=== PATIENT | female | born 1950 | race Caucasian/White ===

== ENCOUNTER 2020-07-02 12:00 | Outpatient (CLI) | payer MEDICARE, SELFPAY ==
--- NOTE | ~2020-07-02 | XR_ITS ---
XR_CERV2-3V_CR DATE: 07/02/2020 12:34 INDICATION: Neck pain for 8 months. History of rheumatoid arthritis. TECHNIQUE: AP, open-mouth, lateral views COMPARISON: None FINDINGS: Reversal/straightening of cervical spine. Approximately 1.5 mm anterolisthesis at C2-3 Approximately 3 mm anterolisthesis at C3-4 Approximately 2.5 mm anterolisthesis at C4-5 Moderately severe degenerative disc disease at C3-4 Mild degenerative disc disease at C4-5 There is uncovertebral joint spurring particularly at C5-6 and C6-7. There is degenerative change at the apophyseal joints throughout the cervical spine. Severe degenerative disc disease at C5-6 and C6-7. No fracture is evident. No prevertebral soft tissue swelling. There is no evidence of bone destruction. Bilateral apical capping. IMPRESSION: Reversal/straightening Anterolisthesis at C2-3, C3-4 and C4-5 Multilevel degenerative disc disease Uncovertebral joint spurring at C5-6 and C6-7 in particular Degenerative change at the apophyseal joints Reviewed, dictated and finalized at [facility]. Reviewed, dictated and finalized at location B.
== END 2020-07-02 12:01 | disposition home or self-care (01) ==
LOC: ANHIMG 12:12
PROVIDERS: PCP Family Medicine
DX: M06.09 Rheumatoid arthritis without rheumatoid factor, multiple sites (principal); M53.82 Other specified dorsopathies, cervical region; M43.12 Spondylolisthesis, cervical region; M50.30 Other cervical disc degeneration, unspecified cervical region; M46.02 Spinal enthesopathy, cervical region
CPT/HCPCS: 72040

== ENCOUNTER 2020-09-07 12:52 | Emergency (ER) | payer MEDICARE, SELFPAY ==
--- NOTE | ~2020-09-07 | CT_ITS ---
EXAMINATION: CT brain wo con DATE: 09/07/2020 14:50 INDICATION: Fall. TECHNIQUE: Computed tomography (CT) of the head was performed without intravenous contrast. The mA wa s adjusted according to patient size. Iterative reconstruction technique was employed. Exam dose: 60 5.33 mGy-cm total exam DLP. COMPARISON: None FINDINGS: Prominent bilateral vertebral artery and carotid siphon internal carotid artery calcificati ons. There is nonspecific diminished attenuation of the cerebral white matter, likely due to chronic small vessel ischemic changes. No intracranial mass lesion or hemorrhage, midline shift or mass effect or cerebrovascular accident. No subdural or epidural hematoma. No fracture or bone destruction of the cranial vault. Included mastoid air cells and paranasal sinuses are unremarkable. IMPRESSION: Cerebral atherosclerosis and chronic small vessel ischemic changes of the cerebral white matter No skull fracture or acute intracranial finding Reviewed, dictated and finalized at [facility]. Reviewed, dictated and finalized at location A.
--- NOTE | ~2020-09-07 | XR_ITS ---
XR shoulder RT min 2V 09/07/2020 13:59 Indication: Right shoulder pain after fall Procedure: 2 views right shoulder Comparison: No prior studies for comparison. Findings: There is a comminuted right humeral neck/head fracture with anterior dislocation. Acromiocl avicular joint intact. Visualized lung parenchyma is unremarkable. Impression: 1: Comminuted displaced right humeral neck/head fracture with anterior dislocation. Reviewed, dictated and finalized at location A. Impression: 1: Comminuted displaced right humeral neck/head fracture with anterior dislocat ion.
--- NOTE | ~2020-09-07 | CT_ITS ---
EXAMINATION: CT facial & cervical spine wo DATE: 09/07/2020 14:50 INDICATION: Fall. Facial and neck injury TECHNIQUE: Computed tomography (CT) of the facial bones and maxillofacial region than cervical spine was performed without intravenous contrast. Automated exposure control and iterative reconstruction t echnique were employed. Exam dose: 216.46 mGy-cm total exam DLP. COMPARISON: None. FINDINGS: The frontozygomatic sutures, orbital rims and real, zygomatic arches, maxillary bones, tem poral mandibular joints and mandible are intact, as well as nasal bones, without apparent recent frac ture. Incidental finding of left nasal antral window. No significant abnormality of the paranasal sinuses o r mastoid air cells. There is extensive lytic change at the body of C2 and the base of the odontoid process is prominent s clerosis and cystic change at the articulation of the lateral elements of C1 and C2 on the left and m ild leftward subluxation of C2 with respect to C1. There are some areas of absent cortex in the mid a nd C2 region. Pathologic fracture is not excluded. Consider neck collar and urgent neurosurgical cons ultation. IMPRESSION: Extensive lytic changes of C2 including the body and the base of the odontoid process, w ith interruption of cortex; pathologic C2 fracture is not excluded. The differential diagnosis for the lytic changes at C2 include extensive bone destruction from pannus from rheumatoid arthritis or other spondyloarthropathy, versus metastasis, less likely plasmacytoma/ multiple myeloma, lymphoma. Consider immobilization and urgent neurosurgical consultation. No facial fracture Reviewed, dictated and finalized at [facility]. Reviewed, dictated and finalized at location A. IMPRESSION: Extensive lytic changes of C2 including the body and the base of t he odontoid process, with interruption of cortex; pathologic C2 fracture is not excluded. The differential diagnosis for the lytic changes at C2 include extensive bone d estruction from pannus from rheumatoid arthritis or other spondyloarthropathy, versus metastasis, less likely plasmacytoma/multiple myeloma, lymphoma. Consider immobilization and urgent neurosurgical consultation. No facial fracture
[2020-09-07 13:11] VITALS: BP 130/70; PULSE 78; RESP 22; TEMP 36.6; O2SAT 98
--- NOTE | 2020-09-07 13:11 | PC.NURSE ---
patient resting on stretcher. in room. on BP and O2 monitors. alert. oriented. denies needs right now. right arm/shoulder elevated on 1 pillow per her request. side rails up x 2. assessments documented
[2020-09-07] MEDS: fentaNYL CITRATE INJ (*CRX) 100 MCG/2 ML VIAL 50 MCG IV PUSH ×2 (13:45→15:13)
[2020-09-07 14:10] VITALS: BP 142/92; PULSE 63; RESP 19; O2SAT 100
--- NOTE | 2020-09-07 14:27 | PC.NURSE ---
resting on stretcher. waiting for CT of facial bones. family in room.
--- NOTE | 2020-09-07 14:41 | PC.NURSE ---
patient in CT now.
[2020-09-07] MEDS: TETANUS,DIPHTHERIA,AC PERTUSSIS ADULT (0.5 ML) BOOSTRIX IM (15:05)
[2020-09-07] MEDS: ONDANSETRON INJ 4 MG/2 ML VIAL IV PUSH (15:12)
--- NOTE | 2020-09-07 15:41 | ED.FALL ---
HPI - Fall General Chief Complaint: Fall Stated Complaint: FALL/SHOULDER/NOSE PAIN Time Seen by Provider: 09/07/20 12:54 Source: patient and family History of Present Illness HPI Narrative: 69 years old white female presented to the ED because of a fall, patient pain, right shoulder pain. Patient denies loss of consciousness, not on any blood thinner, long history of rheumatoid arthritis with chronic neck pain, denies any new pain in her neck today compared to yesterday. Patient denies other injuries. Patient denies any fever, chills, nausea, vomiting, diarrhea, constipation, chest pain, shortness of breath, headache Related Data Home Medications Medication Instructions Recorded Confirmed Estroven 09/07/20 bimatoprost [Lumigan] drp 09/07/20 bupropion HCl [Wellbutrin XL] mg PO HS 09/07/20 gabapentin PO TID 09/07/20 indomethacin HS 09/07/20 infliximab [Remicade] IV MONTHLY 09/07/20 prednisone DAILY 09/07/20 Allergies Allergy/AdvReac Type Severity Reaction Status Date / Time Penicillins Allergy Unknown Verified 09/07/17 07:57 Review of Systems Review of Systems: Narrative: CONSTITUTIONAL: Denies fever, chills, or sweats. EYES: Denies visual changes, redness, or discharge. ENT: Denies rhinorrhea, congestion, sore throat, or otalgia. CARDIOVASCULAR: Denies chest pain, palpitations, or edema. RESPIRATORY: Denies cough or dyspnea. GASTROINTESTINAL: Denies abdominal pain, nausea, vomiting, or diarrhea. GENITOURINARY: Denies dysuria or hematuria. SKIN: Denies rash or itching. MUSCULOSKELETAL: Denies back pain, joint pain, or myalgia. NEUROLOGIC: Denies headache, numbness, or weakness. PSYCHIATRIC: Denies anxiety or depression. PMFSH Past Medical History Medical History (Updated 09/07/20 @ 16:01 by Giovanny Bulladr MD) Rheumatoid arthritis Social History Social History Smoking status: Never smoker Alcohol intake: never Exam Narrative: Exam Narrative: General appearance: Well-developed, well-nourished Skin: Normal color Head: Normocephalic, nontraumatic Eyes: Clear conjunctiva ENT: Oropharynx normal, ears normal, nose normal, contusion, abrasion nasal bridge with swelling and bruises. Neck: Supple, nontender Chest and respiratory: Airway patent, no respiratory distress, no accessory muscle use Heart: Regular rate/rhythm Abdomen: Soft, nontender, no organomegaly, quiet bowel sounds Vascular: Normal peripheral pulses, normal capillary refill. Musculoskeletal: Diffuse tenderness, deformity of the right shoulder with severe limited range of motion Neurologic: Alert and oriented ?3, FURNITURE CLE[employer]ER is normal as tested, no gross motor deficit Course Course Emergency Course: Stable [employer]/PA Physician Supervision DR VASQUES,/ED of [facility] Consultations Consultation #1: DR SCHWARTZ Date: 09/07/20 Time: 15:45 Consultation #2: DR SCHWARTZ/our orthopedic, send patient to [facility] Date: 09/07/20 Time: 15:46 Vital Signs Vital signs: Vital Signs Temperature 36.6 C 09/07/20 13:11 Pulse Rate 78 09/07/20 13:11 Respiratory Rate 22 H 09/07/20 13:11 Blood Pressure 130/70 09/07/20 13:11 Pulse Oximetry 98 09/07/20 13:11 Temperature 36.6 C 09/07/20 13:11 Pulse Rate 63 09/07/20 14:10 Respiratory Rate 19 09/07/20 14:10 Blood Pressure 142/92 H 09/07/20 14:10 Pulse Oximetry 100 09/07/20 14:10 MDM - Fall MDM Narrative Medical decision making narrative: Patient presents with right shoulder pain and facial pain after a fall. Right shoulder fracture/dislocation, facial bone fracture. CT head, facial bones and cervical spine ordered. Tetanus shot ordered, fentanyl IV ordered. Further plan to follow Differ
--- NOTE | 2020-09-07 15:48 | PC.NURSE ---
C-Collar in place at this time.
--- NOTE | 2020-09-07 15:50 | PC.NURSE ---
daughter assisted patient to clean her face with warm washcloth. skin tears cleaned and documented. dressings to both sites.
[2020-09-07 16:00] VITALS: BP 156/77; PULSE 89; RESP 14; O2SAT 100
[2020-09-07] MEDS: HYDROmorphone HCL INJ (*CRX) 1 MG/ML SYR 0.5 MG IV PUSH (16:26)
[2020-09-07 16:32] VITALS: BP 151/73; PULSE 79; RESP 18; O2SAT 100
== END 2020-09-07 16:34 | disposition short-term general hospital (02) ==
PROVIDERS: Emergency Provider Emergency Medicine; PCP Family Medicine
DX: S42.91XA Fracture of right shoulder girdle, part unspecified, initial encounter for closed fracture (principal); S12.101A Unspecified nondisplaced fracture of second cervical vertebra, initial encounter for closed fracture; M06.9 Rheumatoid arthritis, unspecified; M50.323 Other cervical disc degeneration at C6-C7 level; Z23 Encounter for immunization; W19.XXXA Unspecified fall, initial encounter
CPT/HCPCS: 70450; 70486; 72125; 73030; 90471; 90715; 96374; 96375; 96376; 99285; J1170; J2405; J3010; L0140

== ENCOUNTER 2020-09-18 19:44 | Emergency (ER) | payer MEDICARE, SELFPAY ==
--- NOTE | ~2020-09-18 | XR_ITS ---
EXAMINATION: XR chest 1V portable EXAM DATE: 09/18/2020 20:29 INDICATION: Cough, shortness of breath, COVID 19 exposure. TECHNIQUE: Portable AP frontal chest x-ray was obtained. There is no prior study for comparison. FINDINGS: Small amount of right linear opacity most consistent with subsegmental atelectasis. The tiburcio gs are otherwise clear. There are no pleural effusions. The cardiomediastinal silhouette is within normal limits. There is no pneumothorax suspected. There is right shoulder arthroplasty, likely rec ent given the emphysema adjacent to it. IMPRESSION: Small amount of right linear opacity most consistent with subsegmental atelectasis. Reviewed, dictated and finalized at location A. IMPRESSION: Small amount of right linear opacity most consistent with subsegmen lore atelectasis.
[2020-09-18 19:44] VITALS: BP 131/51; PULSE 86; RESP 19; TEMP 36.9; O2SAT 96
[2020-09-18 20:10] VITALS: PULSE 79; O2SAT 97
--- NOTE | 2020-09-18 20:10 | ECG_ITS ---
Measurements Intervals [place] Rate: 80 P: 31 OR: 156 QRS: 56 QRSD: 129 T: 31 QT: 375 QTc: 433 Interpretive Statements SINUS RHYTHM RIGHT BUNDLE BRANCH BLOCK BASELINE WANDER- V3-V6 ABNORMAL ECG Electronically Signed On 09-19-2020 7:07:27 CDT by Charbel Lezama D.O.
--- NOTE | 2020-09-18 20:13 | ED.GENADULT ---
HPI - General Adult General Chief complaint: Shortness of Breath/Dyspnea Stated complaint: sob Time Seen by Provider: 09/18/20 19:50 History of Present Illness HPI narrative: Patient is a 6-year-old female complaining of coughing nonstop could not catch her breath lasted for approximately 10 to 15 minutes and now resolved. Patient states that she wants to make sure that she does not have Covid and that is why she is here. Patient denies of shortness of breath, chest pain, nausea vomiting, diarrhea, fever or chills. She states that her son stayed with her 2 weeks ago and was diagnosed with Covid 1 week ago was hospitalized for 4 to 5 days and was just discharged a few days ago. Patient states she wants to make sure she did not get Covid from him. Patient states that she has an appointment to get a Covid test done tomorrow. Patient currently has no complaints and denies any symptoms. Related Data Home Medications Medication Instructions Recorded Confirmed Estroven 09/07/20 bimatoprost [Lumigan] drp 09/07/20 bupropion HCl [Wellbutrin XL] mg PO HS 09/07/20 gabapentin PO TID 09/07/20 indomethacin HS 09/07/20 infliximab [Remicade] IV MONTHLY 09/07/20 prednisone DAILY 09/07/20 Allergies Allergy/AdvReac Type Severity Reaction Status Date / Time Penicillins Allergy Unknown Verified 09/07/17 07:57 Review of Systems Review of Systems: All systems reviewed & are unremarkable except as noted in HPI and below Constitutional: Constitutional: Denies body ache(s), Denies chills, Denies excessive sweating, Denies fatigue, Denies fever(s), Denies headache(s), Denies lethargy, Denies malaise, Denies weakness and Denies weight loss Eyes: Eyes: Denies blurry vision, Denies change in vision and Denies loss of vision ENT: Denies dizziness, Denies ear discharge, Denies headache(s), Denies lip swelling, Denies epistaxis, Denies nasal congestion, Denies neck pain, Denies throat swelling and Denies tongue swelling Cardiovascular: Cardiovascular: Denies chest pain, Denies chest pain at rest, Denies chest pain with activity, Denies diaphoresis, Denies rapid heart rate, Denies edema, Denies irregular heart rhythm, Denies lightheadedness, Denies palpitations, Denies dyspnea and Denies dyspnea on exertion Respiratory: Respiratory: Denies chest congestion, Denies hemoptysis, Denies dyspnea and Denies dyspnea on exertion Gastrointestinal: Gastrointestinal: Denies abdominal pain, Denies melena, Denies hematochezia, Denies diarrhea, Denies nausea, Denies vomiting and Denies hematemesis Musculoskeletal: Musculoskeletal: Denies abnormal gait, Denies deformity, Denies joint swelling, Denies limited range of motion, Denies neck pain and Denies numbness Neurologic: Denies Abnormal speech present, Denies abnormal gait, Denies confusion, Denies dizziness, Denies headache(s), Denies focal weakness, Denies loss of vision, Denies numbness, Denies Other visual disturbances, Denies Sensory deficit (Neuro) and Denies weakness Psychiatric: Psychiatric: Denies confusion, Denies depression, Denies auditory hallucinations, Denies homicidal ideation and Denies suicidal ideation Endocrine: Endocrine: Denies cold intolerance, Denies excessive sweating, Denies fatigue, Denies heat intolerance and Denies palpitations Hematologic/Lymphatic: Hematologic/Lymphatic: Denies easy bleeding and Denies easy bruising Allergic/Immunologic: Allergic/Immunologic: Denies lip swelling, Denies throat swelling and Denies tongue swelling [facility] Past Medical History Medical History (Updated 09/18/20 @ 21:11 by Bay Irene MD) Rheumatoid arthritis Social History Social History Smoking status: Never smoker Alcohol intake: never Exam Const: General: cooperative, healthy appearing, comfortable, no acute distress, well developed, alert and awake; No confusion Orientation/consciousness: oriented to person, oriented to place, oriented to time, patient oriented x3 and No c
[2020-09-18 20:46] VITALS: BP 125/58; PULSE 75; RESP 22; O2SAT 96
[2020-09-18 21:01] VITALS: BP 121/55; PULSE 77; RESP 22; O2SAT 96
[2020-09-18] MEDS: HYDROcodone/acetaminophen (*CRX) 5-325 MG TABLET 1 TAB PO (21:09)
--- NOTE | 2020-09-18 21:15 | PC.NURSE ---
Pt. reports she does not have her purse with her. This RN did not notice a purse upon patient arrival. EMS never handed this RN or informed this RN of pt. having a purse. [facility] was contacted in regards to said purse and they conveyed they did not have the Pt.'s purse and it was with the Pt.'s . Pt. states that he does not have the purse and it is not in the patients car. RN rechecked pt's room and there is no purse in the patients room.
[2020-09-18 21:20] VITALS: BP 107/53; PULSE 79; RESP 22; O2SAT 97
== END 2020-09-18 21:20 | disposition home or self-care (01) ==
PROVIDERS: Emergency Provider Emergency Medicine; PCP Family Medicine
DX: R05 Cough (principal); J98.01 Acute bronchospasm; M06.9 Rheumatoid arthritis, unspecified
CPT/HCPCS: 71045; 93005; 99283; A9270

== ENCOUNTER 2020-11-23 01:32 | Outpatient (CLI) | payer MEDICARE, SELFPAY ==
[2020-11-23 19:31] LABS: SARS-CoV-2 RNA PCR Negative
== END 2020-11-23 01:33 | disposition home or self-care (01) ==
LOC: ANHCOVIDDT 01:32
PROVIDERS: PCP Family Medicine; Visit Provider Plastic Surgery
DX: Z01.812 Encounter for preprocedural laboratory examination (principal); Z11.59 Encounter for screening for other viral diseases
CPT/HCPCS: 87635; C9803; U0003

== ENCOUNTER 2020-11-27 00:31 | Day surgery (SDC) | payer MEDICARE, SELFPAY ==
[2020-11-18 14:45] VITALS: BMI 20.7
--- NOTE | 2020-11-25 13:41 | WPDANESEPPF ---
Anes - Initial Pre Proc Eval Procedure: Operation Date: 11/27/20 10:30 Proposed Procedures p Excision Basal Cell Carcinoma Left Trapezius with Frozen Section, Possible Local Tissue Transfer - Bay Godwin MD Date/Time: 11/25/20 13:41 Surgeon: Bay Godwin MD Pre Op Diagnosis: BCCA left trapezius Patient Data Age: 69 Gender: F Height: 1.68 m Weight: 58.1 kg Allergies Allergy/AdvReac Type Severity Reaction Status Date / Time Penicillins Allergy Unknown Unknown Verified 11/27/20 08:51 Home Medications Medication Instructions Recorded Confirmed Type Estroven 1 tablet PO HS 09/07/20 11/27/20 History bimatoprost [Lumigan] 1 drp OPHTHALMIC (EYE) HS 09/07/20 11/27/20 History bupropion HCl [Wellbutrin XL] 150 mg PO QAM 09/07/20 11/27/20 History gabapentin 300 mg PO TID 09/07/20 11/27/20 History indomethacin 25 mg PO HS 09/07/20 11/27/20 History infliximab [Remicade] 100 mg IV [id number] 09/07/20 11/27/20 History prednisone 5 mg PO DAILY 09/07/20 11/27/20 History levothyroxine 50 mcg PO QAM 11/18/20 11/27/20 History methotrexate sodium 10 mg PO WEEKLY 11/18/20 11/27/20 History Patient hx anesthesia problems: none Family hx anesthesia problems: none PMFSH Past Medical History Medical History (Updated 11/25/20 @ 13:42 by Dejuan Nash MD) Anxiety Depression Hypothyroidism Rheumatoid arthritis Social History Social History Smoking status: Never smoker Alcohol intake: never Living arrangements: with family Spiritual care concerns: No Anes - Eval Final PreProcedure Day of Procedure 11/25/20 13:41 Patient weight: normal Heart: regular rate and rhythm Lungs: clear to auscultation and normal air movement Airway: Mallampati scale class II Neurological: alert and oriented Last oral intake: >/= 8 hours ASA classification: II Emergent: no Anesthetic plan: proceed Anesthesia type and monitoring: general GIVS and LMA Informed Consent: The patient's anesthetic plan and its attendant risks and benefits were discussed with the patient/family/POA. Questions were solicited and answers provided to the satisfaction of the patient/family/POA.
[2020-11-27 08:41] VITALS: BP 146/58; PULSE 82; RESP 18; TEMP 37.2; O2SAT 100
[2020-11-27] MEDS: LACTATED RINGERS 1,000 ML 30 ML IV CONT ×2 (09:12→12:27)
--- NOTE | 2020-11-27 09:29 | WPDHPUPDATE1 ---
History and Physical Update Update Date/Time: 11/27/20 09:29 History and Physical has been reviewed, including an updated exam of the patient. There are NO changes in the patient's condition. Risks, benefits, and alternatives have been discussed and questions answered. Patient agrees to proceed with procedure.
[2020-11-27 10:30] VITALS: BMI 20.5
--- NOTE | 2020-11-27 11:13 | SUR.OPER ---
specimen given to gerardo by [facility] at [id number]
--- NOTE | 2020-11-27 12:00 | SUR.OPER ---
2nd specimen given to gerardo in path by marc naik at [id number]
[2020-11-27] MEDS: LIDO 1%/EPINEPHRINE 1:100,000 50 ML VIAL 9 ML INFILTRATE (12:05)
[2020-11-27 12:30] VITALS: BP 139/60; PULSE 80; RESP 10; TEMP 36.1; O2SAT 100
[2020-11-27 12:45] VITALS: BP 137/75; PULSE 77; RESP 20; O2SAT 100
--- NOTE | 2020-11-27 12:50 | P.OPB_ITS ---
Procedure Note - Brief Procedure Note - Brief Date of procedure: 11/27/20 Pre-op diagnosis: BCCA left trapezius Post-op diagnosis: same Procedure performed: 4 cm excision of BCC of left upper back with FS x2 and intermediate repair 8 cm. Anesthesia: GLMA Surgeon: Bay Godwin MD Hvac Mechanic: Nigel Estimated blood loss (mL): 2 Drains: No Packing: No Pathology: yes Complications: No immediate complications Condition: stable Disposition: PACU
[2020-11-27 13:00] VITALS: BP 139/61; PULSE 77; RESP 16; O2SAT 100
[2020-11-27 13:15] VITALS: BP 157/78; PULSE 82; RESP 16
--- NOTE | 2020-11-27 13:29 | PM.PROC ---
Procedure Note - Detailed Date of procedure: 11/27/20 Pre-op diagnosis: BCCA left trapezius Post-op diagnosis: same Procedure performed: 4 cm excision of basal cell carcinoma of the left trapezius with frozen section x2 and intermediate repair 8 cm. Description of procedure: the red plaque area on the left trapezius was marked on the patient in the holding area. She was taken to the operating room and placed supine on the operating table. Time-out was held and confirmed. She was given a LMA intubation. She was rolled to the right side position and the axillary roll was placed appropriately. Pressure points were padded. The back and left shoulder area were prepped and draped in usual fashion. The site was carefully examined by me and marked for a peripheral incision. This area was infiltrated with 1% lidocaine with epinephrine. A full-thickness skin ellipse was taken and the point was marked with a suture for 12:00 O'clock, that being nearest the neck. the pathologist reported that the 6-8 margin was positive. A new ellipse of skin from this margin including the 5-9 o'clock region was taken off to with of approximately 5 mm. It was marked at the new 6 o'clock position and sent to pathologist. The report was that we had all margins were free. The skin edges were undermined about 2 cm in all directions and the skin was coapted along the line of least resistance using intradermal 2-0 Vicryl multiple sites. A small dog ear was trimmed out anteriorly. The skin was closed with glue. Patient was discharged from the operating room in stable condition. She has instructions in wound care and follow-up. A prescription for tramadol was called to her pharmacy Surgeon: Bay Godwin MD
[2020-11-27 13:39] VITALS: BP 149/74; PULSE 77; RESP 16
== END 2020-11-27 14:08 | disposition home or self-care (01) ==
PROVIDERS: PCP Family Medicine; Visit Provider Plastic Surgery
PROC: (CPT 11604; principal; 2020-11-27 10:30)
DX: C44.519 Basal cell carcinoma of skin of other part of trunk (principal); M06.9 Rheumatoid arthritis, unspecified; E03.9 Hypothyroidism, unspecified; F41.8 Other specified anxiety disorders
CPT/HCPCS: 11604; 12034; 88305; 88331; 88332; A9270; J2250; J2405; J2704; J3010; J7120

== ENCOUNTER 2021-02-28 15:47 | Outpatient (CLI) | payer MEDICARE, SELFPAY ==
--- NOTE | ~2021-02-28 | XR_ITS ---
XR abdomen/kub 1V 02/28/2021 16:10 Indication: Left flank pain Procedure: KUB Comparison: No prior studies for comparison. Findings: Bowel gas pattern is nonobstructive. No evidence for renal stones. There is scoliosis with compression deformity of L1. There are pelvic phleboliths. Impression: 1: No acute abdominal abnormality. Reviewed, dictated and finalized at location B. Impression: 1: No acute abdominal abnormality.
== END 2021-02-28 15:48 | disposition home or self-care (01) ==
LOC: ANHIMG 15:56
PROVIDERS: PCP Family Medicine; Visit Provider Family Medicine
DX: R10.9 Unspecified abdominal pain (principal)
CPT/HCPCS: 74018

== ENCOUNTER 2021-04-30 13:36 | Outpatient (CLI) | payer MEDICARE, SELFPAY ==
--- NOTE | ~2021-04-30 | XR_ITS ---
XR chest 2V DATE: 04/30/2021 13:58 INDICATION: Lung nodules. TECHNIQUE: PA and lateral views COMPARISON: 09/18/2020 portable AP chest 08/16/2018 CT thorax FINDINGS: Calcified right lower lobe pulmonary emboli and bilateral calcified hilar nodes and aortopu lmonary window calcified nodes, consistent with old granulomatous disease. Mild bilateral apical capping. Heart size is within normal range. The lungs are moderately hyperinflated. No pulmonary infiltrate or consolidation, pleural effusion or pulmonary vascular congestion or pneumothorax. Right glenohumeral joint replacement. Scoliosis and degenerative change of the thoracolumbar spine. Osteopenia. IMPRESSION: Old pulmonary granulomatous disease; no active cardiopulmonary disease Reviewed, dictated and finalized at location A. IMPRESSION: Old pulmonary granulomatous disease; no active cardiopulmonary dise ase
== END 2021-04-30 13:37 | disposition home or self-care (01) ==
LOC: ANHIMG 13:42
PROVIDERS: PCP Family Medicine; Visit Provider Family Medicine
DX: R91.8 Other nonspecific abnormal finding of lung field (principal)
CPT/HCPCS: 71046